=== PATIENT | male | born 1960 | race Caucasian/White ===

== ENCOUNTER 2020-05-01 05:04 | Inpatient (IN) | payer MEDICARE ==
[2020-05-01] VITALS (7 sets, daily range): BP systolic 91–104; BP diastolic 55–69
[~2020-05-01] VITALS: Ht 177.8 cm; Wt 64.0 kg
--- NOTE | 2020-05-01 05:06 | NUR ---
BY EMS TO ROOM ON 3 L/NC
[2020-05-01 05:55] LABS: HEMATOCRIT 42.2 % (39.0-50.0); HEMOGLOBIN 13.2 g/dl (14.0-18.0); IMMATURE GRANULOCYTES 0.5 % (0.0-5.0); MEAN CELL VOLUME 93.4 fL CALC (80.0-100.0); MEAN CORPUSCULAR HGB 29.2 pG CALC (26.0-32.0); MEAN CORPUSCULAR HGB CONC 31.3 g/dL CAL (32.0-36.0); NEUT# 15.01 thou/uL (1.82-7.42); RED BLOOD COUNT 4.52 mill/uL (4.70-6.10); RED CELL DISTRI WIDTH 13.1 % (11.5-15.5)
[2020-05-01 06:14] LABS: ALBUMIN 4.7 g/dL (3.2-5.0); ALKALINE PHOSPHATASE 111 u/l (38-126); AMYLASE 57 u/l (30-110); ANION GAP 17 (6-22 (CALC)); BILIRUBIN, TOTAL 0.9 mg/dL (0.0-1.4); BUN 9 mg/dL (9-20); BUN/CREATININE RATIO 23 (12-20 (CALC)); CARBON DIOXIDE 28 mmol/l (22-30); CHLORIDE 94 mmol/l (95-108); CREATININE 0.4 mg/dL (0.7-1.3); GFR > 60 ML/MIN (>=60 (CALC)); GFR FOR AFR.AMER. > 60 ML/MIN (>=60 (CALC)); LIPASE 74 u/l (23-300); POTASSIUM 5.1 mmol/l (3.5-5.1); SGOT/AST 28 u/l (17-59); SODIUM 133 mmol/l (137-146); TOTAL PROTEIN 7.9 g/dL (6.3-8.2)
[2020-05-01] MEDS ORDERED: PROVENTIL0.083 % IN (06:25)
[2020-05-01] MEDS ORDERED: TRELEGY ELLIPTA1 AER (06:26)
--- NOTE | 2020-05-01 06:30 | NUR ---
PT RATES PAIN AT 8 ONSCALE OF 1-10.NO VOMITING NO DIARRHEA
--- NOTE | 2020-05-01 06:55 | NUR ---
PT REPORT TO MARIBEL
--- NOTE | 2020-05-01 07:27 | NUR ---
REPORT RECEIVED , PT RESTING QUIETLY WITH AT BEDSIDE. EXPLAINED GASTROGRAPHIN INSTRUCTIONS. FIRST ONE PT DRANK WITH NO COMPLAINT.
[2020-05-01 07:34] LABS: URINE BLOOD DIPSTICK NEGATIVE (NEGATIVE); URINE COLOR YELLOW; URINE GLUCOSE - DIPSTICK NEGATIVE (NEGATIVE); URINE KETONE >=80 mg/dL (NEGATIVE); URINE LEUK ESTERASE NEGATIVE (NEGATIVE); URINE NITRITE - DIPSTICK NEGATIVE (Negative); URINE PROTEIN - DIPSTICK NEGATIVE (NEG-TRACE); URINE SPECIFIC GRAVITY 1.025
[2020-05-01 07:37] LABS: URINE BILIRUBIN - DIPSTICK NEGATIVE (NEGATIVE)
[2020-05-01 09:06] LABS: MYOGLOBIN 20 ng/mL (0 - 121)
--- NOTE | 2020-05-01 09:08 | NUR ---
IV FLUIDS INFUSING, PT RESTING QUIETLY . AWAITING XRAY RESULTS.
--- NOTE | 2020-05-01 09:16 | NUR ---
PT REMAINS STABLE, ADVISED PT AND OF ORDER FOR ULTRASOUND AND MORE LAB TESTING. NO VOMITING OR DIARRHEA SINCE THIS NURSES SHIFT HAS BEGUN
--- NOTE | 2020-05-01 10:04 | NUR ---
RECEIVED BEDSIDE REPORT FROM MARIBEL SEGUNDO.
--- NOTE | 2020-05-01 10:22 | NUR ---
MD AT BEDSIDE TO DISCUSS RESULTS AND POC.
--- NOTE | 2020-05-01 11:00 | NUR ---
RESTING QUIETLY ON STRETCHER, AT BEDSIDE, RESPS EVEN AND UNLABORED ON O2 VIA NC. VSS, MONITORS ATTACHED. DENIES NEEDS AT THIS TIME.
[2020-05-01 11:10] LABS: INTERNATIONAL NORMALIZED RATIO 1.1 RATIO (0.7-1.3); PROTHROMBIN TIME 10.7 SECONDS (9.0-12.5)
--- NOTE | 2020-05-01 11:52 | NUR ---
RECIEVED REPORT FROM BHAVESH RN
--- NOTE | 2020-05-01 11:57 | NUR ---
REPORT CALLED TO ZAIRA CROSS.
--- NOTE | 2020-05-01 12:05 | NUR ---
PHONE CALL FROM DR WARNER, NEW ORDERS RECEIVED.
--- NOTE | 2020-05-01 12:10 | NUR ---
COVID SWAB COLLECTED, ISOLATION PRECAUTIONS INITIATED.
--- NOTE | 2020-05-01 12:15 | NUR ---
DR INGRAM AT BEDSIDE TO DISCUSS RESULTS AND POC.
--- NOTE | 2020-05-01 12:18 | NUR ---
WRITTER NOTIFIED THAT PT WAS TO GO TO OR BEFORE BEING BROUGHT UP TO MED SURG
--- NOTE | 2020-05-01 13:23 | NUR ---
TO OR VIA STRETCHER ACCOMPANIED BY DARLYN SEGUNDO.
--- NOTE | 2020-05-01 16:06 | NUR ---
PT ARRIVED TO [facility] ROOM 277 VIA STRETCHER IN STABLE CONDITION ACCOMPAINED BY OR STAFF. PT HAD LAPAROSCOPIC CHOLECYSTECTOMY THAT WAS ADVANCED TO AN OPEN CHOLECYSTECTOMY BY DR WARNER. PT TRANSFER FROM STRETCHER TO BED WITH LITTLE DIFFICULTY. PT IS A/O BUT DROWSY. PT PRESENTS WITH 2 SURGICAL INCISIION WITH DRESSING THAT ARE CDI. KARY DRAIN IN RIGHT UPPER QUADRANT THAT HAS VERY MINIMAL BLOODY OUTPUT AT THIS TIME. ABDOMINAL BINDER APPLIED WITH ASSISTANCE FROM OR STAFF. ASESSMENT AND VITALS OBTAINED AT THIS TIME. BP 91/62, HR 98, O2 95%. LUÍS ANRP NOTIFIED OF BP .RESPIRATIONS ARE EVEN AND UNLABORED WITH NO SIGNS OF DISTRESS NOTED ON 3L NC. LUNG SOUNDS ARE CLEAR. HEART RHYTHM IS NORMAL. BOWEL SOUNDS ARE HYPOACTIVE. RADIAL AND PEDAL PULSES ARE STRONG WITH NORMAL CAPILLARY REFILL. #20G IN LAC RUNNING WITH FLUIDS PER ORDER, SITE APPEARS HEALTHY AND PATENT. PT COMPLAINS OF 8/10 ABDOMINAL PAIN. WRITTER INFORMED PT THAT PAIN MEDICATION WAS UNABLE TO BE GIVEN DUE TO LOW BP. PT VERBAILZED UNDERSTANDING.
--- NOTE | 2020-05-01 18:59 | NUR ---
REPORT RECEIVED FROM AMERICA GREEN. PT RESTING IN BED WITH EYES CLOSED. NO S/S OF DISTRESS AT THIS TIME. SAFETY PRECAUTIONS IN PLACE. WILL CONTINUE TO MONITOR.
--- NOTE | 2020-05-01 19:09 | NUR ---
PT COMPLAINS OF PAIN IN ABD. BP RESUTLING IN . DR VEGA NOTIFIED
--- NOTE | 2020-05-01 19:28 | NUR ---
MD NOTIFIED OF BP AND PAIN SCALE. TORADOL 15 IV ONE TIME DOSE ORDERED. AWAITING VERIFICATION FROM PHARMACY
--- NOTE | 2020-05-01 20:30 | NUR ---
PT RESTING IN BED, WITH EYES CLOSED. PT EASILY AROUSED. DISCUSSED THE POC WITH PT AND THE PHYSICIAN WANTING PT UP TO CHAIR TONIGHT. PT STATED HE WAS IN TOO MUCH PAIN TO GET UP TO THE CHAIR TONIGHT. FURTHER EDUCATED PT ON THE IMPORTANCE OF GETTING UP AFTER SURGERY, PT CONTINUES TO REFUSE GETTING UP TO CHAIR TONIGHT. PT REPORTS PAIN OR A 10/10 IN ABD, PT HYPOTENSIVE, PREVIOUSLY NOTIFIED, PT TO BE MEDICATED PER ORDERS. DRESSING TO ABD CDI. 20CC EMPTIED FROM KARY. SAFETY PRECAUTIONS IN PLACE. WILL CONTINUE TO MONITOR.
[2020-05-02 00:10] VITALS: BP 98/61
--- NOTE | 2020-05-02 00:10 | NUR ---
PT RESTING IN BED WITH EYES CLOSED. NO S/S OF DISTRESS AT THIS TIME. SAFETY PRECAUTIONS IN PLACE. WILL CONTINUE TO MONITOR.
--- NOTE | 2020-05-02 04:29 | NUR ---
PT RESTING IN BED, NO S/S OF DISTRESS AT THIS TIME. SAFETY PRECAUTIONS IN PLACE. WILL CONTINUE TO MONITOR.
[2020-05-02 05:03] LABS: IMMATURE GRANULOCYTES 0.6 % (0.0-5.0); MEAN CELL VOLUME 96.9 fL CALC (80.0-100.0); MEAN CORPUSCULAR HGB 30.6 pG CALC (26.0-32.0); MEAN CORPUSCULAR HGB CONC 31.5 g/dL CAL (32.0-36.0); NEUT# 13.59 thou/uL (1.82-7.42); RED BLOOD COUNT 2.88 mill/uL (4.70-6.10); RED CELL DISTRI WIDTH 13.6 % (11.5-15.5)
[2020-05-02 05:04] VITALS: BP 102/61
[2020-05-02 05:09] LABS: HEMATOCRIT 27.9 % (39.0-50.0); HEMOGLOBIN 8.8 g/dl (14.0-18.0)
[2020-05-02 05:32] LABS: ALKALINE PHOSPHATASE 68 u/l (38-126); BILIRUBIN, TOTAL 0.7 mg/dL (0.0-1.4); BUN 10 mg/dL (9-20); BUN/CREATININE RATIO 22 (12-20 (CALC)); CARBON DIOXIDE 33 mmol/l (22-30); CHLORIDE 102 mmol/l (95-108); CREATININE 0.5 mg/dL (0.7-1.3); GFR > 60 ML/MIN (>=60 (CALC)); GFR FOR AFR.AMER. > 60 ML/MIN (>=60 (CALC)); SODIUM 136 mmol/l (137-146)
[2020-05-02 05:38] LABS: ALBUMIN 2.7 g/dL (3.2-5.0); ANION GAP 5 (6-22 (CALC)); POTASSIUM 3.8 mmol/l (3.5-5.1); SGOT/AST 76 u/l (17-59); TOTAL PROTEIN 4.9 g/dL (6.3-8.2)
--- NOTE | 2020-05-02 07:29 | NUR ---
Patient is screened for rehab intervention and it is felt that he has no needs at this time
[2020-05-02 08:24] VITALS: BP 116/68
--- NOTE | 2020-05-02 08:24 | NUR ---
PT SITTING IN BED. A&O X3. NO DISTRESS NOTED. O2 VIA NC @3L IN PLACE, PT CURRENTLY O2 DEPENDENT. DIMINISHED BREATH SOUNDS HEARD THROUGHOUT ALL LUNG ROMANO. C/O OF PAIN 04/17. PT ABD BINDER IN PLACE, DRESSING CDI. ENCOURAGED PT TO USE IS DEVICE, PT UNABLE TO DEMONSTRATE PROPER USE OF DEVICE DUE TO "PAIN" STATING "I CANNOT RIGHT NOW". BILATERAL SCD'S IN PLACE. PT TOLERATING DIET WELL. ASSESSMENT COMPLETED. DISCUSSED POC. CALL LIGHT IN REACH. CONTINUE TO MONITOR.
--- NOTE | 2020-05-02 08:48 | NUR ---
DR MORA AND KRIS WHITFIELD AT BEDSIDE DISCUSSING POC
--- NOTE | 2020-05-02 08:49 | NUR ---
PT REFUSED NICOTEINE PATCH AFTER IT WAS OPENED. PER PT " I WILL CALL YOU IF I NEED IT"
[2020-05-02 11:05] VITALS: BP 115/75
--- NOTE | 2020-05-02 11:43 | NUR ---
PT SITTING ON THE SIDE OF THE BED EATING LUNCH. NO DISTRESS NOTED. PT C/O OF PAIN 03/17. SCHEDULED PAIN MEDICATION GIVEN. CALL LIGHT IN REACH. CONTINUE TO MONITOR.
[2020-05-02 15:16] VITALS: BP 106/64
--- NOTE | 2020-05-02 16:53 | NUR ---
PT SLEEPING IN BED WITH AT BEDSIDE. NO DISTRESS NOTED. CONTINUE TO MONITOR.
--- NOTE | 2020-05-02 17:42 | NUR ---
PT SITTING ON THE SIDE OF THE BED EATING DINNER. ASSISTED PT BACK TO BED. ABD BINDER REMOVED TO LOOK AT INCISION DRESSING AGAIN, DRESSING CDI WITH KARY DRAIN IN PLACE. NO OTHER NEEDS AT THIS TIME. CALL LIGHT IN REACH. CONTINUE TO MONITOR.
[2020-05-02 19:00] VITALS: BP 94/52
--- NOTE | 2020-05-02 19:30 | NUR ---
REPORT RECEIVED FROM Porfirio TERAN RN, CARE OF PT ASSUMED AT THIS TIME.
--- NOTE | 2020-05-02 20:00 | NUR ---
PHYSICAL ASSESMENT COMPLETE. SCHEDULED MEDICATIONS AND REQUESTED PRN MEDICATION ADMINISTERED, SEE E-MAR. PLAN OF CARE REVIEWED. DENIES QUESTIONS, VERBALIZES UNDERSTANDING. PT DENIES FURTHER NEEDS AT THIS TIME. CALL FRIEDMAN WITHIN REACH, AGREES TO CALL PRN.
--- NOTE | 2020-05-03 00:22 | NUR ---
PT APPEARS TO BE SLEEPING COMFORTABLY, NO APPARENT DISTRESS, RESPIRATIONS REGULAR AND UNLABORED. ITEMS REMAIN WITHIN REACH, BED REMAINS LOCKED IN LOW POSITION W/ BEDRAILS UP X2. CALL FRIEDMAN REMAINS WITHIN REACH.
[2020-05-03 04:00] VITALS: BP 101/53
--- NOTE | 2020-05-03 04:50 | NUR ---
20 ML SANGUINOUS DRAINAGE EMPTIED FROM KARY DRAIN. BULB SUCTION RE-ENGAGED. 250ML DIVYA URINE EMPTIED FROM URINAL. GATORADE PROVIDED PER PTS REQUEST. DENIES FURTHER NEEDS AT THIS TIME. CALL FRIEDMAN WITHIN REACH, AGREES TO CALL PRN.
[2020-05-03 05:52] LABS: HEMATOCRIT 26.6 % (39.0-50.0); HEMOGLOBIN 8.3 g/dl (14.0-18.0); IMMATURE GRANULOCYTES 0.5 % (0.0-5.0); MEAN CELL VOLUME 97.8 fL CALC (80.0-100.0); MEAN CORPUSCULAR HGB 30.5 pG CALC (26.0-32.0); MEAN CORPUSCULAR HGB CONC 31.2 g/dL CAL (32.0-36.0); NEUT# 9.43 thou/uL (1.82-7.42); RED BLOOD COUNT 2.72 mill/uL (4.70-6.10); RED CELL DISTRI WIDTH 13.7 % (11.5-15.5)
[2020-05-03 06:08] LABS: ALBUMIN 2.7 g/dL (3.2-5.0); ALKALINE PHOSPHATASE 78 u/l (38-126); ANION GAP 7 (6-22 (CALC)); BUN 8 mg/dL (9-20); BUN/CREATININE RATIO 18 (12-20 (CALC)); CARBON DIOXIDE 34 mmol/l (22-30); CHLORIDE 97 mmol/l (95-108); CREATININE 0.4 mg/dL (0.7-1.3); GFR > 60 ML/MIN (>=60 (CALC)); GFR FOR AFR.AMER. > 60 ML/MIN (>=60 (CALC)); POTASSIUM 3.5 mmol/l (3.5-5.1); SGOT/AST 40 u/l (17-59); SODIUM 135 mmol/l (137-146); TOTAL PROTEIN 4.9 g/dL (6.3-8.2)
[2020-05-03 06:16] LABS: BILIRUBIN, TOTAL 0.4 mg/dL (0.0-1.4)
[2020-05-03 09:22] VITALS: BP 97/59
--- NOTE | 2020-05-03 09:22 | NUR ---
PT LAYING IN BED. A&O X3. NO DISTRESS NOTED. O2 VIA NC @ 3L IN PLACE. PT STATES PAIN IS "ALRIGHT" AT THIS TIME. ABD BINDER IN PLACE. KARY DRAIN WITH MINIMAL OUTPUT NOTED. IS DEVICE AT BEDSIDE, REINFORCEMENT NEEDED. NO OTHER NEEDS AT THIS TIME. ASSESSMENT COMPLETED. DISCUSSED POC. CALL LIGHT IN REACH. CONTINUE TO MONITOR.
--- NOTE | 2020-05-03 10:00 | NUR ---
DR WARNER AND MORGAN AT BEDSIDE DISCUSSING POC
[2020-05-03 10:37] VITALS: BP 121/52
--- NOTE | 2020-05-03 11:29 | NUR ---
PT LAYING IN BED. NO DISTRESS. CALL LIGHT IN REACH. CONTINUE TO MONITOR.
[2020-05-03 12:12] VITALS: BP 110/66
[2020-05-03 15:06] VITALS: BP 110/64
--- NOTE | 2020-05-03 17:27 | NUR ---
PT SITTING ON THE SIDE OF THE BED EATING DINNER. NEW IV INITIATED. #22 RFA. PT TOLERATED WELL.
--- NOTE | 2020-05-03 18:31 | NUR ---
DRESSING CHANGE COMPLETED, PT TOLERATED WELL. SUTURES AND MIDLINE INCISION CDI, NO REDNESS AROUND SUTURES OR ANY S/S OF INFECTION.
[2020-05-03 19:00] VITALS: BP 111/63
--- NOTE | 2020-05-03 19:25 | NUR ---
1924-PT SITTING ON SIDE OF BED IN TRIPOD POSITION. AT BEDSIDE. NO S/S OF DISTRESS. COMPLAINTS OF PAIN, PT MEDICATED. ASSESSMENT COMPLETE. BED LOW AND LOCKED. CALL LIGHT AND PHONE WITHIN REACH. PT STABLE, WILL CONTINUE TO MONITOR.
--- NOTE | 2020-05-04 00:24 | NUR ---
0024-PT LYING IN BED, ASLEEP. NO S/S OF DISTRESS. BED LOW AND LOCKED. CALL LIGHT AND PHONE WITHIN REACH. PT STABLE. WILL CONTINUE TO MONITOR.
[2020-05-04 04:00] VITALS: BP 112/67
--- NOTE | 2020-05-04 04:49 | NUR ---
0435-PT SITTING UP IN BED, AWAKE. PERCOCET GIVEN DUE TO PAIN. PT ALSO REQUESTED COFFEE, COFFEE PROVIDED. NO S/S OF DISTRESS. PT ENGAGED ME IN CONVERSATION. NO OTHER NEEDS AT THIS TIME. BED LOW AND LOCKED. CALL LIGHT AND PHONE WITHIN REACH. PT STABLE. WILL CONTINUE TO MONITOR.
[2020-05-04 04:58] LABS: HEMOGLOBIN 8.9 g/dl (14.0-18.0); IMMATURE GRANULOCYTES 0.2 % (0.0-5.0); MEAN CORPUSCULAR HGB 30.4 pG CALC (26.0-32.0); MEAN CORPUSCULAR HGB CONC 30.7 g/dL CAL (32.0-36.0); NEUT# 6.03 thou/uL (1.82-7.42); RED BLOOD COUNT 2.93 mill/uL (4.70-6.10); RED CELL DISTRI WIDTH 13.5 % (11.5-15.5)
[2020-05-04 05:19] LABS: ALKALINE PHOSPHATASE 110 u/l (38-126); ANION GAP 8 (6-22 (CALC)); BILIRUBIN, TOTAL 0.4 mg/dL (0.0-1.4); BUN 6 mg/dL (9-20); BUN/CREATININE RATIO 14 (12-20 (CALC)); CARBON DIOXIDE 38 mmol/l (22-30); CHLORIDE 94 mmol/l (95-108); CREATININE 0.4 mg/dL (0.7-1.3); GFR > 60 ML/MIN (>=60 (CALC)); GFR FOR AFR.AMER. > 60 ML/MIN (>=60 (CALC)); POTASSIUM 3.8 mmol/l (3.5-5.1); SGOT/AST 34 u/l (17-59); SODIUM 136 mmol/l (137-146); TOTAL PROTEIN 5.6 g/dL (6.3-8.2)
[2020-05-04 07:40] VITALS: BP 119/71
--- NOTE | 2020-05-04 07:40 | NUR ---
PT SITTING ON THE SIDE OF THE BED. A&O X3. NO DISTRESS NOTED. O2 VIA NC @3L IN PLACE. ABD BINDER IN PLACE, KARY IN PLACE WITH SEROSANGUINEOUS OUTPUT NOTED. SCD'S IN PLACE. ENCOURAGED PT TO USE IS DEVICE ALONG WITH STARTING TO AMBULATE AROUND THE ROOM, PT VERBALIZED UNDERSTANDING. PT TOLERATING REGULAR DIET WELL, DENIES ANY N&V. NO OTHER NEEDS AT THIS TIME. ASSESSMENT COMPLETED. DISCUSSED POC. CALL LIGHT IN REACH. CONTINUE TO MONITOR.
--- NOTE | 2020-05-04 10:36 | NUR ---
DR MORA AT BEDSIDE DISCUSSING POC.
[2020-05-04] MEDS ORDERED: PERCOCET 5/325M1 TAB PO (12:24)
--- NOTE | 2020-05-04 13:35 | NUR ---
KARY DRAIN PULLED BY MD THOMPSON OF DR WARNER WITH THE ASSISTANCE OF KEHINDE CROSS. PT TOLERATED WELL. IV INTACT UPON REMOVAL.
--- NOTE | 2020-05-04 13:41 | NUR ---
Discharge instructions given along with prescription of Percocet. Patient verbalizes understanding of d/c instructions. Discharged in stable condition wearing own O2 via wheelchair to home accompanied by staff. All belongings sent with pt.
== END 2020-05-04 13:40 | disposition home or self-care (01) | DRG 415 ==
LOC: ED 05:04 → ED-I 05:52 → ED 05:52 → ED-I 10:48 → ED 10:58 → MS2 10:59
PROVIDERS: Emergency Medicine; Family Medicine; Nurse Practitioner; Nurse Practitioner Family; ADMIT Internal Medicine; ATTEND Internal Medicine
PROC: 0FT40ZZ Resection of Gallbladder, Open Approach (ICD-10-PCS; principal; 2020-05-01)
PROC: 0FJ44ZZ Inspection of Gallbladder, Percutaneous Endoscopic Approach (ICD-10-PCS; 2020-05-01)
PROC: BF001ZZ Plain Radiography of Bile Ducts using Low Osmolar Contrast (ICD-10-PCS; 2020-05-01)
DX: K80.00 Calculus of gallbladder with acute cholecystitis without obstruction (principal); E87.2 Acidosis; K82.8 Other specified diseases of gallbladder; R16.0 Hepatomegaly, not elsewhere classified; J44.9 Chronic obstructive pulmonary disease, unspecified; F17.210 Nicotine dependence, cigarettes, uncomplicated; D64.9 Anemia, unspecified; Z86.14 Personal history of Methicillin resistant Staphylococcus aureus infection; Z90.81 Acquired absence of spleen; Z20.828 Contact with and (suspected) exposure to other viral communicable diseases
CPT/HCPCS: J0131; J1610; J2710; Q9967

== ENCOUNTER 2020-10-16 17:21 | Emergency (ER) | payer MEDICARE ==
[~2020-10-16] VITALS: Ht 177.8 cm; Wt 65.9 kg
[~2020-10-16 17:21] MED LIST: PERCOCET 5/325M1 TAB PO; PROVENTIL0.083 % IN; TRELEGY ELLIPTA1 AER
[2020-10-16] MEDS ORDERED: ASPIRIN 81 LOW81 MG (18:11)
[2020-10-16] MEDS ORDERED: KEFLEX500 M1 PO (19:27)
[2020-10-16 20:18] VITALS: BP 125/73
== END 2020-10-16 20:26 | disposition home or self-care (01) ==
LOC: ED 17:21
DX: L01.00 Impetigo, unspecified (principal); J43.9 Emphysema, unspecified; F32.9 Major depressive disorder, single episode, unspecified; Z86.14 Personal history of Methicillin resistant Staphylococcus aureus infection

== ENCOUNTER 2020-10-20 14:47 | Emergency (ER) | payer MEDICARE ==
[~2020-10-20] VITALS: Ht 177.8 cm; Wt 70.0 kg
[~2020-10-20 14:47] MED LIST changes: +ASPIRIN 81 LOW81 MG; +KEFLEX500 M1 PO
[2020-10-20 16:00] VITALS: BP 165/87
== END 2020-10-20 16:00 | disposition home or self-care (01) ==
LOC: ED 14:47
DX: L01.00 Impetigo, unspecified (principal); J43.9 Emphysema, unspecified; F32.9 Major depressive disorder, single episode, unspecified

== ENCOUNTER 2022-05-08 11:43 | Emergency (ER) | payer MEDICARE ==
[2022-05-08] VITALS (7 sets, daily range): BP systolic 115–136; BP diastolic 79–89
[~2022-05-08] VITALS: Ht 177.8 cm; Wt 65.9 kg
[2022-05-08 13:01] LABS: HEMATOCRIT 40.1 % (39.0-50.0); HEMOGLOBIN 12.8 g/dl (14.0-18.0); IMMATURE GRANULOCYTES 0.1 % (0.0-5.0); MEAN CELL VOLUME 96.6 fL CALC (80.0-100.0); MEAN CORPUSCULAR HGB 30.8 pG CALC (26.0-32.0); MEAN CORPUSCULAR HGB CONC 31.9 g/dL CAL (32.0-36.0); NEUT# 5.71 thou/uL (1.82-7.42); RED BLOOD COUNT 4.15 mill/uL (4.70-6.10); RED CELL DISTRI WIDTH 13.9 % (11.5-15.5)
[2022-05-08 13:06] LABS: ALBUMIN 4.3 g/dL (3.2-5.0); ALKALINE PHOSPHATASE 99 u/l (38-126); ANION GAP 12 (6-22 (CALC)); BILIRUBIN, TOTAL 0.4 mg/dL (0.0-1.4); BUN 6 mg/dL (9-20); BUN/CREATININE RATIO 12 (12-20 (CALC)); CARBON DIOXIDE 32 mmol/l (22-30); CHLORIDE 95 mmol/l (95-108); CREATININE 0.5 mg/dL (0.7-1.3); GFR FOR AFR.AMER. > 60 ML/MIN (>=60 (CALC)); GFR OTHER RACES > 60 ML/MIN (>=60 (CALC)); POTASSIUM 3.3 mmol/l (3.5-5.1); SGOT/AST 35 u/l (17-59); SODIUM 136 mmol/l (137-146); TOTAL PROTEIN 7.7 g/dL (6.3-8.2)
== END 2022-05-08 14:09 | disposition home or self-care (01) ==
LOC: ED 11:43
PROVIDERS: Nurse Practitioner
DX: J43.9 Emphysema, unspecified (principal); F32.A Depression, unspecified; Z99.81 Dependence on supplemental oxygen; T41.5X6A Underdosing of therapeutic gases, initial encounter; Z91.138 Patient's unintentional underdosing of medication regimen for other reason; Z59.1 Inadequate housing

== ENCOUNTER 2022-06-12 19:27 | Emergency (ER) | payer MEDICARE ==
[~2022-06-12] VITALS: Ht 177.8 cm; Wt 75.0 kg
[2022-06-12 20:14] VITALS: BP 138/90
[2022-06-12 20:31] VITALS: BP 122/82
[2022-06-12] MEDS ORDERED: BACTRIM DS1 TAB PO (21:29)
[2022-06-12 21:32] VITALS: BP 138/90
== END 2022-06-12 21:38 | disposition home or self-care (01) ==
LOC: ED 19:27
PROC: 0H9BXZZ Drainage of Right Upper Arm Skin, External Approach (ICD-10-PCS; principal; 2022-06-12)
DX: L02.411 Cutaneous abscess of right axilla (principal); J43.9 Emphysema, unspecified; Z86.14 Personal history of Methicillin resistant Staphylococcus aureus infection

== ENCOUNTER 2022-06-15 12:09 | Emergency (ER) | payer MEDICARE ==
[~2022-06-15] VITALS: Ht 177.8 cm; Wt 75.0 kg
[~2022-06-15 12:09] MED LIST changes: +BACTRIM DS1 TAB PO
[2022-06-15 12:17] VITALS: BP 122/76
[2022-06-15 12:31] VITALS: BP 108/93
[2022-06-15 12:45] VITALS: BP 119/78
[2022-06-15 12:49] VITALS: BP 119/78
== END 2022-06-15 13:03 | disposition home or self-care (01) ==
LOC: ED 12:09
DX: Z48.01 Encounter for change or removal of surgical wound dressing (principal); J43.9 Emphysema, unspecified; F32.A Depression, unspecified; Z86.14 Personal history of Methicillin resistant Staphylococcus aureus infection

== ENCOUNTER 2023-08-10 23:37 | Inpatient (IN) | payer MEDICARE ==
[~2023-08-10] VITALS: Ht 177.8 cm; Wt 71.0 kg
[~2023-08-10 23:37] MED LIST changes: -ASPIRIN 81 LOW81 MG; +ASPIRIN 81 LOW81 MG PO; -TRELEGY ELLIPTA1 AER; +TRELEGY ELLIPTA1 AER PO
--- NOTE | 2023-08-10 23:37 | NUR ---
PATIENT ARRIVED VIA EMS AT THIS TIME TO RM 14, PATIENT NOTED TO BE WITH INCREASED WOB, RR. ARE SYMMETRICAL AND LABORED NOTED AT 50, PATIENT CONNECTED TO CONTINUOUS CARDIAC MONITORING, SINUS TACHYCARDIA ON MONITOR SHOWS HR AT 130S-140S, PATIENT IS NOTED TO BE DIAPHORETIC, LUNGS AUSCULTATED BILATERALLY ARE NOTED TO BE DIMINISHED WITH WHEEZING AT THIS TIME, PATIENT PLACED IN HIGH-FOWLERS POSITION NOTED ACCESSORY MUSCLE USE, RT AT BEDSIDE FOR EVALUATION, PATIENT SPEAKING IN SHORT PHRASES DUE TO RESPIRATORY DISTRESS, BEDSIDE TRIAGE COMPLETE PER PATIENT'S INFORMATION, PATIENT DENIES MED LIST AND VERBALIZES HE IS UNABLE TO RECALL MEDCATION AT HOME, MD NOTIFIED OF PATIENT STATUS AT THIS TIME, AWAITING MD EVAL AND ORDERS AT THIS TIME.
[2023-08-10 23:46] VITALS: BP 158/88
[2023-08-11] VITALS (58 sets, daily range): BP systolic 94–139; BP diastolic 59–86
--- NOTE | 2023-08-11 00:02 | NUR ---
IV PLACED, LABS DRAWN, BLOOD CULTURES COLLECTED, PATIENT REMAINS ALERT AND ORIENTED X4 AT THIS TIME, VERBALIZES HIS BASLINE IS 4L O2 AT HOME, COPD HX, PATIENT CONTINUING TO BE IN NOTED RESP. DISTRESS, PATIENT CONTINUES TO HAVE LABORED BREATHING AT THIS TIME, RR. NOTED TO BE BETWEEN 25-30 AT THIS TIME, PATIENT IS NOTED TO HAVE CLUBBING OF THE FINGERS, REMAINS IN SINUS TACH AT 140S, PATIENT EDUCATED ON CONTINUOUS PLAN OF CARE, RT AT BEDSIDE, PATIENT EDUCATED ON INITIATION OF BIPAP DUE TO RESP. DISTRESS, PATIENT REFUSING BIPAP, REDIRECTED DUE TO SEVERITY OF DISTRESS, AGREEABLE, PATIENT MEETING SEPSIS CRITERIA, MD NOTIFIED, SEPSIS ALERT CALLED AT THIS TIME, PROTOCOL INITIATED AT THIS TIME.
[2023-08-11 00:16] LABS: BASO% 0.8 % (0-3); EOS% 11.6 % (0-8); HEMATOCRIT 38.4 % (39.0-50.0); HEMOGLOBIN 11.3 g/dl (14.0-18.0); IMMATURE GRANULOCYTES 0.3 % (0.0-5.0); LYMPH% 39.7 % (15-41); MEAN CELL VOLUME 101.3 fL CALC (80.0-100.0); MEAN CORPUSCULAR HGB 29.8 pG CALC (26.0-32.0); MEAN CORPUSCULAR HGB CONC 29.4 g/dL CAL (32.0-36.0); MONO% 12.3 % (2-13); NEUT# 3.11 thou/uL (1.82-7.42); NEUT% 35.3 % (42-76); RED BLOOD COUNT 3.79 mill/uL (4.70-6.10); RED CELL DISTRI WIDTH 13.5 % (11.5-15.5)
--- NOTE | 2023-08-11 00:20 | NUR ---
PATIENT REMAINS WITHOUT CHANGE AT THIS TIME, BIPAP IN PLACE, NEB TX PROVIDED, PATIENT MEDICATED PER ORDERS AT THIS TIME, ABX RUNNING, IFV BOLUS BEGAN, PATIENT UPDATED ON CONTINUOUS PLAN OF CARE WITH NO FURTHER QUESTIONS AT THIS TIME, VOICES " I CAN'T KEEP THIS MASK ON," PATIENT REDIRECTED AND ENCOURAGED AT THIS TIME, PATIENT DEMONSTRATED UNDERSTANDING BY NODDING OF THE HEAD, AWAITING ALL FURTHER RESULTS AND ORDERS AT THIS TIME.
[2023-08-11 00:23] LABS: ALBUMIN 4.4 g/dL (3.2-5.0); ALKALINE PHOSPHATASE 68 u/l (38-126); ANION GAP 12 (6-22 (CALC)); BILIRUBIN, TOTAL 0.3 mg/dL (0.2-1.3); BUN 10 mg/dL (8-23); BUN/CREATININE RATIO 17 (12-20 (CALC)); CARBON DIOXIDE 38 mmol/l (22-30); CHLORIDE 97 mmol/l (95-108); CREATININE 0.6 mg/dL (0.7-1.3); GFR FOR AFR.AMER. > 60 ML/MIN (>=60 (CALC)); GFR OTHER RACES > 60 ML/MIN (>=60 (CALC)); POTASSIUM 3.8 mmol/l (3.5-5.1); SGOT/AST 42 u/l (19-48); SODIUM 142 mmol/l (137-146); TOTAL PROTEIN 7.6 g/dL (6.3-8.2)
[2023-08-11 00:25] LABS: PROTHROMBIN TIME 9.5 SECONDS (9.0-12.5)
[2023-08-11 00:37] LABS: D-DIMER 0.71 mg/L (0.19-0.60)
--- NOTE | 2023-08-11 01:00 | NUR ---
BIPAP CONTINUES TO BE IN PLACE, PATIENT TOLERATING WELL, ABX RUNNING, IVF RUNNING, PATIENT NOTED TO HAVE IMPROVEMENT AT THIS TIME WITH RR. EVEN AND LABORED AT 25-30, HR IMPROVEMENT NOTES SINUS TACH AT 120S, PATIENT UPDATED ON CONTINUOUS PLAN OF CARE AT THIS TIME, FAMILY UPDATED ON CONTINUED PLAN OF CARE, AWAITING ALL FURTHER RESULTS/ORDERS, MD NOTIFIED OF CONTINUED PATIENT STATUS.
--- NOTE | 2023-08-11 01:45 | NUR ---
MD AT BEDSIDE FOR REEVALUATION AND DISCUSSION FOR PLAN OF ADMISSION.
--- NOTE | 2023-08-11 02:15 | NUR ---
PATIENT REMAINS WITH MILD TACHYPNIC AT THIS TIME, RR. EVEN AND LABORED AT THIS TIME NOTED AT 25, HR SHOWS IMPROVEMENT, SINUS TACHY AT 100S, PATIENT LUNGS CONTINUE TO BE DIMINISHED WITH MINIMAL WHEEZING, BIPAP IN PLACE, PATIENT ATTEMPTING TO RPOVIDE URINE SAMPLE, URINAL AT BEDSIDE, PATIENT VOICES UNDERSTANDING OF PLAN OF CARE AND PLAN FOR ADMISSION AT THIS TIME. AWAITING URINE SAMPLE, WILL CONTINUE TO MONITOR, IVF AND ABX COMPLETE AT THIS TIME.
--- NOTE | 2023-08-11 02:46 | NUR ---
REPORT GIVEN TO AMERICA COOK AT THIS TIME, PATIENT AWAITING TRANSPORT TO ICU AT THIS TIME.
--- NOTE | 2023-08-11 03:00 | NUR ---
PATIENT TRANSPORTED TO ICU AT THIS TIME, RT AT BEDSIDEM PATIENT TOLERATED WELL ON NRB AT THIS TIME, PRIMARY NURSE AT BEDSIDE, VOICES APPRECIATION OF CARE AT THIS TIME. ALL BELONGINGS AT BEDSIDE.
--- NOTE | 2023-08-11 04:28 | NUR ---
RECEIVED REPORT FROM ED NURSE FELIX. 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 MD ORDERED STAT ABG, PATIENT IS CURRENTLY ON 3 LPM NC AT 100% SPO2, PATIENT ADMISSION ASSESSMENT COMPLETED, PATIENT ON ISOLATION FOR HX OF MRSA, MRSA SWAB OBTAINED, CALL LIGHT IN REACH.
[2023-08-11 04:43] LABS: BASO% 0.3 % (0-3); EOS% 0.2 % (0-8); HEMATOCRIT 34.6 % (39.0-50.0); HEMOGLOBIN 10.3 g/dl (14.0-18.0); IMMATURE GRANULOCYTES 1.4 % (0.0-5.0); LYMPH% 3.9 % (15-41); MEAN CELL VOLUME 102.1 fL CALC (80.0-100.0); MEAN CORPUSCULAR HGB 30.4 pG CALC (26.0-32.0); MEAN CORPUSCULAR HGB CONC 29.8 g/dL CAL (32.0-36.0); MONO% 1.1 % (2-13); NEUT# 12.32 thou/uL (1.82-7.42); NEUT% 93.1 % (42-76); RED BLOOD COUNT 3.39 mill/uL (4.70-6.10); RED CELL DISTRI WIDTH 13.8 % (11.5-15.5)
[2023-08-11 04:44] LABS: URINE BILIRUBIN - DIPSTICK Negative (NEGATIVE); URINE BLOOD DIPSTICK Trace-intact (NEGATIVE); URINE GLUCOSE - DIPSTICK Negative (NEGATIVE); URINE KETONE Negative (NEGATIVE); URINE LEUK ESTERASE Negative (NEGATIVE); URINE NITRITE - DIPSTICK Negative (Negative); URINE PH 5.5 (4.5-8.0); URINE PROTEIN - DIPSTICK 100 mg/dL (NEG-TRACE); URINE SPECIFIC GRAVITY >=1.030
[2023-08-11 04:49] LABS: URINE COLOR Yellow
--- NOTE | 2023-08-11 04:50 | NUR ---
ABG DONE, MADE AWARE OF RESULTS.
[2023-08-11 04:52] LABS: ALBUMIN 3.8 g/dL (3.2-5.0); ALKALINE PHOSPHATASE 70 u/l (38-126); ANION GAP 11 (6-22 (CALC)); BILIRUBIN, TOTAL 0.2 mg/dL (0.2-1.3); BUN 9 mg/dL (8-23); BUN/CREATININE RATIO 18 (12-20 (CALC)); CARBON DIOXIDE 33 mmol/l (22-30); CHLORIDE 101 mmol/l (95-108); CREATININE 0.5 mg/dL (0.7-1.3); GFR FOR AFR.AMER. > 60 ML/MIN (>=60 (CALC)); GFR OTHER RACES > 60 ML/MIN (>=60 (CALC)); POTASSIUM 4.1 mmol/l (3.5-5.1); SGOT/AST 37 u/l (19-48); SODIUM 140 mmol/l (137-146); TOTAL PROTEIN 6.3 g/dL (6.3-8.2)
[2023-08-11 04:59] LABS: URINE BACTERIA FEW hpf; URINE EPITHELIAL CELLS FEW EPI/hpf (0-FEW)
[2023-08-11 05:00] LABS: URINE CASTS FEW lpf (NONE-RARE); URINE MUCUS FEW hpf (NONE-FEW)
[2023-08-11 05:01] LABS: URINE FINE GRAN CAST FEW lpf; URINE HYALINE CAST FEW lpf (NONE-RARE)
--- NOTE | 2023-08-11 08:00 | NUR ---
RCD REPORT FOR[facility]. PT IS A/OX3. ON 3L NC. TROPONINS WERE POPPING POSITIVE REPEATS DUE SOON. LUNGS DIMINISHED. SKIN INTACT. FAMILY UPDTED ON STATUS. PT DENIES ANY CHEST PAIN OR SOB. NSR ON MONITOR. PT RCVING ABX AND SOLUMEDROL. USES URINAL. DENIES ANY COMPLAINTS AT THIS TIME.
--- NOTE | 2023-08-11 09:26 | NUR ---
CRITICAL LAB RESULTS CALLED FROM LAB FOR ELEVATED TROPININ LEVELS, STAT EKG ORDERED
--- NOTE | 2023-08-11 10:00 | NUR ---
[facility] CALLED. SPOKE TO SCOTT. [facility] SPOKE TO KRIS AND ACCEPTED PT. PENDING BED NUMBER.
[2023-08-11 10:16] LABS: BASO% 0.2 % (0-3); HEMATOCRIT 31.8 % (39.0-50.0); HEMOGLOBIN 9.7 g/dl (14.0-18.0); IMMATURE GRANULOCYTES 0.3 % (0.0-5.0); LYMPH% 11.3 % (15-41); MEAN CORPUSCULAR HGB 30.8 pG CALC (26.0-32.0); MEAN CORPUSCULAR HGB CONC 30.5 g/dL CAL (32.0-36.0); MONO% 2.1 % (2-13); NEUT# 5.69 thou/uL (1.82-7.42); NEUT% 86.1 % (42-76); RED BLOOD COUNT 3.15 mill/uL (4.70-6.10); RED CELL DISTRI WIDTH 13.9 % (11.5-15.5)
[2023-08-11 11:03] LABS: ACT PARTIAL THROMBO TIME 24.6 SECONDS (20.0-32.5); PROTHROMBIN TIME 9.9 SECONDS (9.0-12.5)
--- NOTE | 2023-08-11 12:00 | NUR ---
PT NOT OCMPLAINING OF ANY CP. PENDING TRANSFER TO [facility]
[2023-08-11 12:28] LABS: D-DIMER 0.51 mg/L (0.19-0.60)
--- NOTE | 2023-08-11 14:00 | NUR ---
pt rcd room number, pending positive transport pickup
[2023-08-11] MEDS ORDERED: OMEPRAZOLE20 MG PO (14:30)
== END 2023-08-11 14:45 | disposition short-term general hospital (02) | DRG 280 ==
LOC: ED 23:37 → ED-I 08-11 01:58 → ED 08-11 02:20 → ICU 08-11 02:21
PROVIDERS: Emergency Medicine; ADMIT Student in an Organized Health Care Education/Training Program; ATTEND Student in an Organized Health Care Education/Training Program
PROC: 5A09357 Assistance with Respiratory Ventilation, Less than 24 Consecutive Hours, Continuous Positive Airway Pressure (ICD-10-PCS; principal; 2023-08-11)
DX: I21.4 Non-ST elevation (NSTEMI) myocardial infarction (principal); J96.01 Acute respiratory failure with hypoxia; J96.22 Acute and chronic respiratory failure with hypercapnia; J44.1 Chronic obstructive pulmonary disease with (acute) exacerbation; F40.240 Claustrophobia; F17.210 Nicotine dependence, cigarettes, uncomplicated; F10.10 Alcohol abuse, uncomplicated; Z99.81 Dependence on supplemental oxygen
CPT/HCPCS: J1644

== ENCOUNTER 2023-08-24 20:58 | Inpatient (IN) | payer MEDICARE ==
[2023-08-24] VITALS (9 sets, daily range): BP systolic 99–144; BP diastolic 73–103
[~2023-08-24] VITALS: Ht 177.8 cm; Wt 71.8 kg
[~2023-08-24 20:58] MED LIST changes: +OMEPRAZOLE20 MG PO
[2023-08-24] MEDS ORDERED: CLOPIDOGREL75 MG PO (21:53)
[2023-08-24] MEDS ORDERED: PREDNISONE20 MG PO (21:54)
[2023-08-24 22:47] LABS: BASO% 0.2 % (0-3); EOS% 0.5 % (0-8); IMMATURE GRANULOCYTES 2.9 % (0.0-5.0); LYMPH% 9.6 % (15-41); MEAN CELL VOLUME 102.7 fL CALC (80.0-100.0); MEAN CORPUSCULAR HGB 30.7 pG CALC (26.0-32.0); MEAN CORPUSCULAR HGB CONC 29.9 g/dL CAL (32.0-36.0); MONO% 4.2 % (2-13); NEUT# 22.96 thou/uL (1.82-7.42); NEUT% 82.6 % (42-76); RED BLOOD COUNT 1.5 mill/uL (4.70-6.10); RED CELL DISTRI WIDTH 14.7 % (11.5-15.5)
[2023-08-24 22:51] LABS: HEMATOCRIT 15.4 % (39.0-50.0); HEMOGLOBIN 4.6 g/dl (14.0-18.0)
[2023-08-24 23:07] LABS: ALBUMIN 3.7 g/dL (3.2-5.0); ALKALINE PHOSPHATASE 70 u/l (38-126); BILIRUBIN, TOTAL 0.2 mg/dL (0.2-1.3); BUN 23 mg/dL (8-23); BUN/CREATININE RATIO 32 (12-20 (CALC)); CARBON DIOXIDE 30 mmol/l (22-30); CHLORIDE 94 mmol/l (95-108); CREATININE 0.7 mg/dL (0.7-1.3); GFR FOR AFR.AMER. > 60 ML/MIN (>=60 (CALC)); GFR OTHER RACES > 60 ML/MIN (>=60 (CALC)); SGOT/AST 37 u/l (19-48); SODIUM 134 mmol/l (137-146); TOTAL PROTEIN 5.9 g/dL (6.3-8.2)
[2023-08-24 23:08] LABS: ANION GAP 13 (6-22 (CALC)); POTASSIUM 2.9 mmol/l (3.5-5.1)
[2023-08-25] VITALS (95 sets, daily range): BP systolic 93–214; BP diastolic 62–176
[2023-08-25 07:24] LABS: BASO% 0.1 % (0-3); LYMPH% 4.9 % (15-41); MEAN CORPUSCULAR HGB 30.7 pG CALC (26.0-32.0); MEAN CORPUSCULAR HGB CONC 31.9 g/dL CAL (32.0-36.0); MONO% 2.6 % (2-13); NEUT# 24.31 thou/uL (1.82-7.42); NEUT% 91.4 % (42-76); RED BLOOD COUNT 2.67 mill/uL (4.70-6.10); RED CELL DISTRI WIDTH 14.4 % (11.5-15.5)
[2023-08-25 07:40] LABS: HEMATOCRIT 25.7 % (39.0-50.0); HEMOGLOBIN 8.2 g/dl (14.0-18.0)
[2023-08-25 07:41] LABS: MEAN CELL VOLUME 96.3 fL CALC (80.0-100.0)
[2023-08-25 07:55] LABS: BUN 26 mg/dL (8-23); BUN/CREATININE RATIO 48 (12-20 (CALC)); CHLORIDE 100 mmol/l (95-108); CREATININE 0.6 mg/dL (0.7-1.3); GFR FOR AFR.AMER. > 60 ML/MIN (>=60 (CALC)); GFR OTHER RACES > 60 ML/MIN (>=60 (CALC)); SODIUM 134 mmol/l (137-146)
[2023-08-25 07:56] LABS: ANION GAP 15 (6-22 (CALC)); CARBON DIOXIDE 23 mmol/l (22-30); POTASSIUM 4.3 mmol/l (3.5-5.1)
[2023-08-25 10:41] LABS: BASO% 0.1 % (0-3); HEMATOCRIT 25.9 % (39.0-50.0); HEMOGLOBIN 8.3 g/dl (14.0-18.0); LYMPH% 5.4 % (15-41); MEAN CELL VOLUME 94.9 fL CALC (80.0-100.0); MEAN CORPUSCULAR HGB 30.4 pG CALC (26.0-32.0); MONO% 1.9 % (2-13); NEUT# 25.7 thou/uL (1.82-7.42); NEUT% 91.6 % (42-76); RED BLOOD COUNT 2.73 mill/uL (4.70-6.10); RED CELL DISTRI WIDTH 14.6 % (11.5-15.5)
[2023-08-25 10:54] LABS: URINE BILIRUBIN - DIPSTICK Negative (NEGATIVE); URINE BLOOD DIPSTICK Trace-lysed (NEGATIVE); URINE CLARITY Clear; URINE GLUCOSE - DIPSTICK Negative (NEGATIVE); URINE KETONE Trace mg/dL (NEGATIVE); URINE LEUK ESTERASE Negative (Negative); URINE NITRITE - DIPSTICK Negative (Negative); URINE PH 5.5 (4.5-8.0); URINE PROTEIN - DIPSTICK 100 mg/dL (NEG-TRACE); URINE SPECIFIC GRAVITY >=1.030; URINE UROBILINOGEN - DIPSTICK 0.2 E.U./dL (0.2)
[2023-08-25 11:14] LABS: URINE COLOR Dark yellow; URINE RBC 0-2 RBC/hpf (0-5); URINE SQUAMOUS EPITHELIAL CELL FEW EPI/hpf (0-FEW); URINE WBC 0-2 WBC/hpf (0-5)
[2023-08-25 11:16] LABS: URINE COARSE GRANULAR CAST FEW lpf
[2023-08-25 18:15] LABS: HEMATOCRIT 24.4 % (39.0-50.0); HEMOGLOBIN 7.8 g/dl (14.0-18.0); IMMATURE GRANULOCYTES 0.7 % (0.0-5.0); MEAN CELL VOLUME 94.6 fL CALC (80.0-100.0); MEAN CORPUSCULAR HGB 30.2 pG CALC (26.0-32.0); PLATELET COUNT 405 thou/uL (130-400); RED BLOOD COUNT 2.58 mill/uL (4.70-6.10); RED CELL DISTRI WIDTH 15.3 % (11.5-15.5)
[2023-08-25 18:30] LABS: MANUAL DIFFERENTIAL YES
[2023-08-25 18:47] LABS: BAND 6 % (0-8)
[2023-08-26] VITALS (25 sets, daily range): BP systolic 89–116; BP diastolic 54–76
[2023-08-26 00:17] LABS: HEMATOCRIT 21.5 % (39.0-50.0); IMMATURE GRANULOCYTES 0.8 % (0.0-5.0); MEAN CELL VOLUME 94.3 fL CALC (80.0-100.0); MEAN CORPUSCULAR HGB 30.7 pG CALC (26.0-32.0); MEAN CORPUSCULAR HGB CONC 32.6 g/dL CAL (32.0-36.0); PLATELET COUNT 426 thou/uL (130-400); RED BLOOD COUNT 2.28 mill/uL (4.70-6.10); RED CELL DISTRI WIDTH 15.3 % (11.5-15.5)
[2023-08-26 00:19] LABS: MANUAL DIFFERENTIAL YES
[2023-08-26 00:48] LABS: PLASMA CELL 0
[2023-08-26 06:31] LABS: IMMATURE GRANULOCYTES 0.7 % (0.0-5.0); MEAN CELL VOLUME 93.3 fL CALC (80.0-100.0); MEAN CORPUSCULAR HGB 31.6 pG CALC (26.0-32.0); MEAN CORPUSCULAR HGB CONC 33.8 g/dL CAL (32.0-36.0); PLATELET COUNT 395 thou/uL (130-400); RED BLOOD COUNT 2.09 mill/uL (4.70-6.10); RED CELL DISTRI WIDTH 15.2 % (11.5-15.5)
[2023-08-26 06:42] LABS: ALBUMIN 3.1 g/dL (3.2-5.0); ALKALINE PHOSPHATASE 52 u/l (38-126); ANION GAP 5 (6-22 (CALC)); BILIRUBIN, TOTAL 0.2 mg/dL (0.2-1.3); BUN 16 mg/dL (8-23); BUN/CREATININE RATIO 30 (12-20 (CALC)); CHLORIDE 100 mmol/l (95-108); CREATININE 0.5 mg/dL (0.7-1.3); GFR FOR AFR.AMER. > 60 ML/MIN (>=60 (CALC)); GFR OTHER RACES > 60 ML/MIN (>=60 (CALC)); POTASSIUM 3.9 mmol/l (3.5-5.1); SGOT/AST 30 u/l (19-48); SODIUM 135 mmol/l (137-146); TOTAL PROTEIN 5.2 g/dL (6.3-8.2)
[2023-08-26 06:49] LABS: CARBON DIOXIDE 34 mmol/l (22-30)
[2023-08-26 06:51] LABS: HEMATOCRIT 19.5 % (39.0-50.0); HEMOGLOBIN 6.6 g/dl (14.0-18.0); MANUAL DIFFERENTIAL YES
[2023-08-26 06:54] LABS: BAND 1 % (0-8)
[2023-08-26 12:58] LABS: IMMATURE GRANULOCYTES 0.9 % (0.0-5.0); MEAN CELL VOLUME 91.9 fL CALC (80.0-100.0); MEAN CORPUSCULAR HGB 30.7 pG CALC (26.0-32.0); MEAN CORPUSCULAR HGB CONC 33.5 g/dL CAL (32.0-36.0); PLATELET COUNT 412 thou/uL (130-400); RED BLOOD COUNT 2.83 mill/uL (4.70-6.10); RED CELL DISTRI WIDTH 15.6 % (11.5-15.5)
[2023-08-26 13:02] LABS: HEMOGLOBIN 8.7 g/dl (14.0-18.0); MANUAL DIFFERENTIAL YES
== END 2023-08-26 15:00 | disposition short-term general hospital (02) | DRG 812 ==
LOC: ED 20:58 → ED-I 21:15 → ED 08-25 00:17 → ICU 08-25 00:18
PROVIDERS: Emergency Medicine; ADMIT Student in an Organized Health Care Education/Training Program; ATTEND Student in an Organized Health Care Education/Training Program
PROC: 30233N1 Transfusion of Nonautologous Red Blood Cells into Peripheral Vein, Percutaneous Approach (ICD-10-PCS; principal; 2023-08-25)
PROC: 30233N1 Transfusion of Nonautologous Red Blood Cells into Peripheral Vein, Percutaneous Approach (ICD-10-PCS; 2023-08-25)
PROC: 30233N1 Transfusion of Nonautologous Red Blood Cells into Peripheral Vein, Percutaneous Approach (ICD-10-PCS; 2023-08-26)
DX: D50.0 Iron deficiency anemia secondary to blood loss (chronic) (principal); J44.1 Chronic obstructive pulmonary disease with (acute) exacerbation; K92.1 Melena; E87.6 Hypokalemia; E11.9 Type 2 diabetes mellitus without complications; I25.2 Old myocardial infarction; F17.200 Nicotine dependence, unspecified, uncomplicated; Z79.02 Long term (current) use of antithrombotics/antiplatelets; Z20.822 Contact with and (suspected) exposure to COVID-19
CPT/HCPCS: P9016; S0164

== ENCOUNTER 2024-10-17 21:42 | Inpatient (IN) | payer MEDICARE ==
[~2024-10-17] VITALS: Ht 177.8 cm; Wt 68.0 kg
[~2024-10-17 21:42] MED LIST changes: +CLOPIDOGREL75 MG PO; +PREDNISONE20 MG PO
[2024-10-17 21:54] VITALS: BP 119/70
[2024-10-17] MEDS ORDERED: ALBUTEROL SULFATE 2.5 MG VIAL NEB ONE (21:55)
[2024-10-17 22:00] VITALS: BP 118/67
[2024-10-17 22:13] LABS: BASO% 0.7 % (0-3); EOS% 6.1 % (0-8); HEMATOCRIT 31.9 % (39.0-50.0); HEMOGLOBIN 9.1 g/dl (14.0-18.0); IMMATURE GRANULOCYTES 0.2 % (0.0-5.0); LYMPH% 13.9 % (15-41); MEAN CELL VOLUME 98.5 fL CALC (80.0-100.0); MEAN CORPUSCULAR HGB 28.1 pG CALC (26.0-32.0); MEAN CORPUSCULAR HGB CONC 28.5 g/dL CAL (32.0-36.0); MONO% 8.3 % (2-13); NEUT# 7.92 thou/uL (1.82-7.42); NEUT% 70.8 % (42-76); RED BLOOD COUNT 3.24 mill/uL (4.70-6.10); RED CELL DISTRI WIDTH 15.7 % (11.5-15.5)
[2024-10-17 22:22] LABS: ALKALINE PHOSPHATASE 63 u/l (38-126); BUN 11 mg/dL (8-23); BUN/CREATININE RATIO 26 (12-20 (CALC)); CHLORIDE 97 mmol/l (95-108); CREATININE 0.4 mg/dL (0.7-1.3); ESTIMATED GFR 123 ML/MIN (>=90 (CALC)); POTASSIUM 3.5 mmol/l (3.5-5.1); SGOT/AST 29 u/l (19-48); SODIUM 140 mmol/l (137-146)
[2024-10-17 22:41] LABS: ALBUMIN 3.9 g/dL (3.2-5.0); ANION GAP 7 (6-22 (CALC)); BILIRUBIN, TOTAL 0.3 mg/dL (0.2-1.3); CARBON DIOXIDE 40 mmol/l (22-30); TOTAL PROTEIN 6.7 g/dL (6.3-8.2)
[2024-10-17 22:45] LABS: PROTHROMBIN TIME 10.4 SECONDS (9.0-12.5)
[2024-10-17 23:00] VITALS: BP 125/72
[2024-10-18] VITALS (11 sets, daily range): BP systolic 103–131; BP diastolic 55–76
[2024-10-18] MEDS ORDERED: Polyethylene Glycol 3350 17 GM/PKT PO PRN (00:40)
[2024-10-18] MEDS ORDERED: ONDANSETRON 4 MG/TAB ODT PO PRN (00:40)
[2024-10-18] MEDS ORDERED: ALUM & MAG HYDROX-SIMETHICONE 30 ML PO PRN (00:40)
[2024-10-18] MEDS ORDERED: FAMOTIDINE 10MG/ML 2ML SDV IV PRN (00:40)
[2024-10-18] MEDS ORDERED: ONDANSETRON HCl 4 MG/2 ML SDV IV PRN (00:40)
[2024-10-18] MEDS ORDERED: IBUPROFEN 800 MG/TAB PO PRN (00:40)
[2024-10-18] MEDS ORDERED: IPRATROPIUM-Albuterol 0.5MG-2.5MG/3 ML IN SCH (07:00)
[2024-10-18] MEDS ORDERED: IPRATROPIUM-Albuterol 0.5MG-2.5MG/3 ML NEB PRN (07:20)
[2024-10-18] MEDS ORDERED: methylPREDNISolone Sod Succ 40 MG/ML SDV IV SCH (09:00)
[2024-10-18] MEDS ORDERED: IPRATROPIUM-Albuterol 0.5MG-2.5MG/3 ML NEB SCH (11:00)
[2024-10-18] MEDS ORDERED: AZITHROMYCIN 500 MG in SODIUM CHLORIDE 0.9% 250 ML IV SCH (12:00)
[2024-10-18] MEDS ORDERED: Zaleplon 5 MG/CAP PO PRN (20:30)
[2024-10-19] VITALS (11 sets, daily range): BP systolic 14–133; BP diastolic 54–74
[2024-10-19 05:31] LABS: BASO% 0.3 % (0-3); EOS% 0.1 % (0-8); HEMATOCRIT 27.1 % (39.0-50.0); HEMOGLOBIN 7.8 g/dl (14.0-18.0); IMMATURE GRANULOCYTES 0.2 % (0.0-5.0); LYMPH% 16.2 % (15-41); MEAN CELL VOLUME 97.1 fL CALC (80.0-100.0); MEAN CORPUSCULAR HGB CONC 28.8 g/dL CAL (32.0-36.0); MONO% 10.3 % (2-13); NEUT# 8.98 thou/uL (1.82-7.42); NEUT% 72.9 % (42-76); RED BLOOD COUNT 2.79 mill/uL (4.70-6.10); RED CELL DISTRI WIDTH 15.7 % (11.5-15.5)
[2024-10-19 05:47] LABS: ALBUMIN 3.2 g/dL (3.2-5.0); BILIRUBIN, TOTAL 0.2 mg/dL (0.2-1.3); CREATININE 0.4 mg/dL (0.7-1.3); MAGNESIUM 1.8 mg/dL (1.6-2.3); POTASSIUM 3.9 mmol/l (3.5-5.1); TOTAL PROTEIN 5.9 g/dL (6.3-8.2)
[2024-10-19] MEDS ORDERED: SODIUM CHLORIDE 0.9% 500 ML IV ONE (10:30)
[2024-10-19] MEDS ORDERED: chlordiazePOXIDE HCL 25 MG CAP PO PRN (10:35)
[2024-10-19] MEDS ORDERED: SODIUM CHLORIDE 0.9% 1,000 ML IV PRN (10:35)
[2024-10-19] MEDS ORDERED: FUROSEMIDE 40 MG/4 ML SDV IV SCH (11:30)
[2024-10-19] MEDS ORDERED: Pantoprazole Sodium 40 MG VIAL (Protonix) IV SCH (11:30)
[2024-10-20] VITALS (7 sets, daily range): BP systolic 96–198; BP diastolic 46–88
[2024-10-20 08:33] LABS: BASO% 0.2 % (0-3); IMMATURE GRANULOCYTES 0.3 % (0.0-5.0); LYMPH% 9.2 % (15-41); MEAN CELL VOLUME 96.2 fL CALC (80.0-100.0); MEAN CORPUSCULAR HGB 29.1 pG CALC (26.0-32.0); MEAN CORPUSCULAR HGB CONC 30.3 g/dL CAL (32.0-36.0); MONO% 6.5 % (2-13); NEUT# 10.76 thou/uL (1.82-7.42); NEUT% 83.8 % (42-76); RED BLOOD COUNT 4.19 mill/uL (4.70-6.10); RED CELL DISTRI WIDTH 15.7 % (11.5-15.5)
[2024-10-20 08:37] LABS: HEMATOCRIT 40.3 % (39.0-50.0); HEMOGLOBIN 12.2 g/dl (14.0-18.0)
[2024-10-20] MEDS ORDERED: MULTIPLE VITAMIN TABLET PO SCH (09:00)
[2024-10-20] MEDS ORDERED: FOLIC ACID 1 MG/TAB PO SCH (09:00)
[2024-10-20] MEDS ORDERED: THIAMINE HCL 100 MG TAB PO SCH (09:00)
[2024-10-20] MEDS ORDERED: IRON SUCROSE COMPLEX 200 MG in SODIUM CHLORIDE 0.9% 100 ML IV SCH (13:00)
[2024-10-21] VITALS (9 sets, daily range): BP systolic 107–160; BP diastolic 64–82
[2024-10-21 04:53] LABS: HEMATOCRIT 37.8 % (39.0-50.0); HEMOGLOBIN 11.1 g/dl (14.0-18.0); MEAN CELL VOLUME 97.4 fL CALC (80.0-100.0); MEAN CORPUSCULAR HGB 28.6 pG CALC (26.0-32.0); MEAN CORPUSCULAR HGB CONC 29.4 g/dL CAL (32.0-36.0); RED BLOOD COUNT 3.88 mill/uL (4.70-6.10); RED CELL DISTRI WIDTH 15.6 % (11.5-15.5)
[2024-10-21 05:08] LABS: ALBUMIN 3.3 g/dL (3.2-5.0); CREATININE 0.4 mg/dL (0.7-1.3); MAGNESIUM 1.9 mg/dL (1.6-2.3); POTASSIUM 4.5 mmol/l (3.5-5.1)
[2024-10-21 05:28] LABS: BILIRUBIN, TOTAL 0.4 mg/dL (0.2-1.3)
[2024-10-21] MEDS ORDERED: predniSONE 20 MG/TAB PO SCH (21:00)
[2024-10-22 04:05] VITALS: BP 121/66
[2024-10-22 05:08] LABS: HEMATOCRIT 38.2 % (39.0-50.0); HEMOGLOBIN 11.2 g/dl (14.0-18.0); MEAN CORPUSCULAR HGB 28.4 pG CALC (26.0-32.0); MEAN CORPUSCULAR HGB CONC 29.3 g/dL CAL (32.0-36.0); RED BLOOD COUNT 3.94 mill/uL (4.70-6.10); RED CELL DISTRI WIDTH 15.4 % (11.5-15.5)
[2024-10-22 05:15] LABS: ALBUMIN 3.3 g/dL (3.2-5.0); BILIRUBIN, TOTAL 0.4 mg/dL (0.2-1.3); CREATININE 0.4 mg/dL (0.7-1.3); POTASSIUM 4.2 mmol/l (3.5-5.1); TOTAL PROTEIN 5.8 g/dL (6.3-8.2)
[2024-10-22 05:44] VITALS: BP 113/70
[2024-10-22 07:00] VITALS: BP 113/70
[2024-10-22] MEDS ORDERED: DOXYCYCLINE100 MG PO (09:53)
[2024-10-22] MEDS ORDERED: PREDNISONE10 MG PO (09:54)
[2024-10-22] MEDS ORDERED: PROTONIX40 M2 PO (09:55)
== END 2024-10-22 11:44 | disposition home or self-care (01) | DRG 191 ==
LOC: ED 21:42 → ED-I 10-18 00:21 → ED 10-18 00:37 → MS2 10-18 00:38
PROVIDERS: Internal Medicine; ADMIT Internal Medicine; ATTEND Internal Medicine
PROC: 30233N1 Transfusion of Nonautologous Red Blood Cells into Peripheral Vein, Percutaneous Approach (ICD-10-PCS; principal; 2024-10-19)
PROC: 30233N1 Transfusion of Nonautologous Red Blood Cells into Peripheral Vein, Percutaneous Approach (ICD-10-PCS; 2024-10-19)
DX: J44.1 Chronic obstructive pulmonary disease with (acute) exacerbation (principal); J96.11 Chronic respiratory failure with hypoxia; J43.9 Emphysema, unspecified; D50.0 Iron deficiency anemia secondary to blood loss (chronic); F10.10 Alcohol abuse, uncomplicated; K43.2 Incisional hernia without obstruction or gangrene; F32.A Depression, unspecified; F17.200 Nicotine dependence, unspecified, uncomplicated; Z99.81 Dependence on supplemental oxygen; Z79.82 Long term (current) use of aspirin; Z90.81 Acquired absence of spleen; Z86.73 Personal history of transient ischemic attack (TIA), and cerebral infarction without residual deficits; I25.2 Old myocardial infarction; Z87.19 Personal history of other diseases of the digestive system
CPT/HCPCS: J0456; J0696; J1756; J1940; J2470; P9016